=== PATIENT | female | born 1965 ===

== ENCOUNTER 2018-02-22 15:40 | Emergency (ER) | payer OTHER ==
[2018-02-22 17:41] VITALS: BP 155/100
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
== END 2018-02-22 18:30 | disposition home or self-care (01) ==
LOC: UCEAST 15:40
DX: M25.511 Pain in right shoulder (principal); M25.571 Pain in right ankle and joints of right foot
CPT/HCPCS: 99201; G0463

== ENCOUNTER 2019-03-24 10:28 | Emergency (ER) | payer OTHER ==
[2019-03-24] MEDS ORDERED: Ondansetron ODT TAB* 4 MG SL ONE (10:38)
[2019-03-24] MEDS ORDERED: Ketorolac *IM* INJ* 60 MG/2 ML VIAL IM ONE (10:38)
--- NOTE | 2019-03-24 11:51 | UC ---
Back Pain HPI - HPI Summary HPI Summary: 53 yo female presents accompanied by with left flank pain x 2 days. She tells me that she has a history of kidney stones requiring lithotripsy. Over the last 2 days has had increasing left flank pain that became much worse today - sharp in nature. She went to her PCP's office who referred her here. She is nauseous and has intermittent vomiting due to the pain. She is feeling well otherwise and denies fever, chills, SOB, chest pain, abdominal pain, dysuria, diarrhea. - History of Current Complaint Chief Complaint: [facility] Stated Complaint: KIDNEY PAIN Time Seen by Provider: 03/24/19 10:38 Hx Obtained From: Patient, Family/Mobile Practice Lead Onset/Duration: Sudden Onset Severity Initially: Moderate Severity Currently: Severe Pain Intensity: 10 Pain Scale Used: 0-10 Numeric - Allergies/Home Medications Allergies/Adverse Reactions: Allergies Allergy/AdvReac Type Severity Reaction Status Date / Time codeine Allergy Dizziness Verified 03/24/19 10:30 PMH/Surg Hx/FS Hx/Imm Hx - Additional Past Medical History Additional PMH: Kidney stones - Surgical History Surgical History: Yes Surgery Procedure, Year, and Place: c sec X2 - Family History Known Family History: Positive: None - Social History Occupation: Employed Full-time Lives: With Family Alcohol Use: None Substance Use Type: None Smoking Status (MU): Never Smoked Tobacco Review of Systems All Other Systems Reviewed And Are Negative: Yes Constitutional: Positive: Negative Skin: Positive: Negative Respiratory: Positive: Negative Cardiovascular: Positive: Negative Gastrointestinal: Positive: Vomiting, Nausea Genitourinary: Positive: Other - left flank pain Motor: Positive: Negative Neurovascular: Positive: Negative Musculoskeletal: Positive: Negative Neurological: Positive: Negative Psychological: Positive: Negative Physical Exam - Summary Physical Exam Summary: GENERAL: Mild pain distress. SKIN: No rashes, sores, lesions, or open wounds. NECK: Supple. Nontender. No lymphadenopathy. CHEST: CTAB. No r/r/w. No accessory muscle use. Breathing comfortably and in no distress. CV: RRR. Without m/r/g. Pulses intact. Cap refill <2seconds ABDOMEN: Moderate LEFT CVA tenderness and left flank TTP. Soft. NTTP. No distention or guarding. No organomegaly. Bowel sounds present NEURO: Alert. PSYCH: Age appropriate behavior. Triage Information Reviewed: Yes Vital Signs: Initial Vital Signs Temp 97.9 F 03/24/19 10:31 Pulse 70 03/24/19 10:31 Resp 18 03/24/19 10:31 BP 151/109 03/24/19 10:31 Pulse Ox 99 03/24/19 10:31 Laboratory Tests 03/24/19 11:09 POC Urine Color Yellow POC Urine Clarity Clear POC Urine pH 5.5 POC Ur Specif Joice <= 1.005 L POC Urine Protein Negative POC Ur Glucose (UA) Negative POC Urine Ketones Negative POC Urine Blood Trace-lysed A POC Urine Nitrite Negative POC Urine Bilirubin Negative POC Urine Urobilinogen 0.2 POC U Leukocyte Esteras Negative Vital Signs Reviewed: Yes Back Pain Course/Dx - Course Course Of Treatment: In the clinic pt was given toradol IM and zofran for her symptoms. Her pain improved from 10/10 to around 3/10 and she had no more episodes of vomiting. She was overall much more comfortable. CT: IMPRESSION: Nonobstructing calculi in both kidneys. No hydroureter is noted. Hepatic steatosis is noted. Normal appendix. Discussed results with pt and her . Will rx for flomax and norco and have her f/u with Urology this week. - Differential Dx/Diagnosis Provider Diagnosis: Nephrolithiasis, Left flank pain Discharge - Sign-Out/Discharge Documenting (check all that apply): Patient Departure All imaging exams completed and their final reports reviewed: Yes - Discharge Plan Condition: Stable Disposition: HOME Prescriptions: HYDROcodone/ACETAMIN 5-325 MG* [[place] 5-325 TAB*] 1 tab PO Q8H PRN #9 tab MDD 3 PRN Reason: Pain Tamsulosin HCl [Flomax] 0.4 mg PO DAILY #10 cap Patient Education Materials: Kidney Stones (ED) Referrals: No Primary Care Phys,NOPCP [Primary Care Provider] - Ruben Emery MD [Medical Doctor] - As Soon As Possible Additional Instructions: If you develop a fever, shortness of breath, chest pain, new or worsening symptoms - please call your PCP or go to the ED immediately. Your blood pressure was high at todays visit. Please see your primary provider within 4 weeks for recheck and re-evaluation. 1) Please call Urology at the number below to schedule an appointment for recheck this week 2) If your pain worsens or if you develop a fever, abdominal pain, vomiting, or inability to urinate - please call 911 or go directly to the ER - Billing Disposition and Condition Condition: STABLE Disposition: Home
[2019-03-24 12:11] VITALS: BP 165/99
[2019-03-24] MEDS ORDERED: HYDROcodone/ACETAMIN 5-325 MG* 1 TAB PO ONE (12:24)
== END 2019-03-24 12:25 | disposition home or self-care (01) ==
LOC: UCEAST 10:28
DX: N20.0 Calculus of kidney (principal); Z87.442 Personal history of urinary calculi; Z88.5 Allergy status to narcotic agent
CPT/HCPCS: 74176; 81003; 96372; 99212; A9270-GY; G0463; J1885